=== PATIENT | male | born 1995 | race Two or more races ===

== ENCOUNTER 2017-02-21 15:32 | Emergency (ER) | payer OTHER ==
[~2017-02-21 15:32] MED LIST: FLEXERIL10 MG PO; NAPROSYN500 MG PO
[2017-02-21 16:16] LABS: URINE SOURCE CLEAN CATCH
[2017-02-21 16:19] LABS: URINE APPEARANCE CLEAR; URINE BILIRUBIN NEG (NEG); URINE BLOOD NEG (NEG); URINE COLOR YELLOW; URINE GLUCOSE NEG (NEG); URINE KETONE NEG (NEG); URINE LEUKOCYTE ESTERASE 1+ (NEG); URINE NITRATE NEG (NEG); URINE PH 5.5 (5-8); URINE PROTEIN NEG (NEG); URINE SPECIFIC GRAVITY 1.019 (1.003-1.035); URINE UROBILINOGEN 0.2 MG/DL (NEG)
[2017-02-21 16:21] LABS: CULTURE INDICATED? YES; URBCS1 AUWI 0-2 /[HPF] (0-2); URINE SQUAMOUS EPITHELIAL CELL NONE SEEN /[HPF]
[2017-02-21 16:27] LABS: URINE BACTERIA AUWI 1+ (NEGATIVE)
[2017-02-25 11:41] LABS: CHLAMYDIA TRACH Detected (Not Detected); N GONOR Not Detected (Not Detected)
== END 2017-02-21 17:02 | disposition home or self-care (01) ==
LOC: CED 15:32
PROVIDERS: Physician Assistant
DX: N34.1 Nonspecific urethritis (principal); F91.3 Oppositional defiant disorder; Z79.899 Other long term (current) drug therapy
CPT/HCPCS: 81003; 87086; 87491; 87591; 96372; 99283; J0696